=== PATIENT | male | born 1955 | race Caucasian/White ===

== ENCOUNTER 2022-08-06 08:00 | Outpatient (CLI) | payer MEDICARE, OTHER ==
--- NOTE | 2022-08-06 14:18 | XRAY Report ---
PROCEDURE: Shoulder 3 View RT INDICATIONS: RIGHT SHOULDER PAIN TECHNIQUE: 3 views of the shoulder were acquired. COMPARISON: None. FINDINGS: Bones: No fractures or dislocations. No suspicious bony lesions. Visualized ribs appear intact. Moderate to severe acromioclavicular degenerative narrowing. Soft tissues: No suspicious soft tissue calcifications. IMPRESSION: Moderate to severe acromioclavicular degenerative narrowing. Reviewed by: Tammy Machuca MD on 08/06/2022 2:17 PM PDT Approved by: Tammy Machuca MD on 08/06/2022 2:17 PM PDT Station ID: [id number]
== END 2022-08-06 23:59 | disposition home or self-care (01) ==
LOC: DI.WOS 08:00
PROVIDERS: ATTEND Physician Assistant Surgical
DX: M19.011 Primary osteoarthritis, right shoulder (principal)

== ENCOUNTER 2023-03-16 10:23 | Outpatient (CLI) | payer MEDICARE, OTHER ==
--- NOTE | 2023-03-16 16:37 | XRAY Report ---
PROCEDURE: AC Joints INDICATIONS: RIGHT SHOULDER INJURY TECHNIQUE: 2 views each of both acromioclavicular joints were acquired. COMPARISON: Shoulder x-rays July 21, 2022 right shoulder. FINDINGS: Imaging findings shows some moderate bilateral AC joint degenerative change. There is some minimal wi dening of the right AC compared to the left however this is not definitely changed on weightbearing v iews. No acute fracture or dislocation is seen. IMPRESSION: Moderate bilateral AC joint degenerative change with minimal widening of the right AC j oint which does not change on weightbearing views. If further evaluation clinically indicated an MRI of the right shoulder may be of further clinical value. Reviewed by: Claude David MD on 03/16/2023 4:36 PM PST Approved by: Claude David MD on 03/16/2023 4:36 PM PST Station ID: [id number]
== END 2023-03-16 23:59 | disposition home or self-care (01) ==
LOC: DI.WOS 10:23
PROVIDERS: ATTEND Physician Assistant Surgical
DX: M75.100 Unspecified rotator cuff tear or rupture of unspecified shoulder, not specified as traumatic (principal); M19.011 Primary osteoarthritis, right shoulder